=== PATIENT | male | born 2005 | race Caucasian/White ===

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

== ENCOUNTER 2024-06-04 10:19 | Outpatient (AMB) | payer BC, SELFPAY ==
--- NOTE | 2024-06-04 10:52 | MHC.PC.OV ---
Vital Signs 06/04/24 10:53 Height 6 ft Weight 166 lb BMI 22.5 BP 110/72 Blood Pressure Location Lt brachial Position Sitting Pulse 64 Pulse Source Pulse Oximeter Temp 97.5 F Temp Source Temporal Artery Scan Pulse Oximetry (%) 97 Oxygen Delivery Method Room Air Intake Visit Reasons: establish care/deuce [place] Intake Note: Patient is here today for a physical. Monotyper Required: No Accompanied by: Self / Same As Patient Allergies No Known Allergies [No Known Allergies*] Allergy (Verified 06/04/24 11:13) Medication List - Last Reconciled 06/04/24 by Dipak Jordan PA-C No Known Home Meds Tobacco use date assessed: 06/04/24 Dental Screening Dental Screen Date: 06/04/24 Did you have a dental visit in the last 12 months?: Yes Did you have a dental problem in the last 6 months where you did not have access to dental care?: No Was dental information given to patient?: Patient has dentist HPI establish care/deuce Saykin HPI Details Patient has a 18-year-old male here today for a transfer of care visit. Patient does not have any particular past medical history. No concerns today Vaccines: Up-to-date with tetanus vaccines [facility] Medical History Hx of reduction of closed fracture Retained orthopedic hardware Surgical History S/P hardware removal Social History (Updated 06/04/24 @ 11:17 by Dipak Jordan PA-C) Housing: House Are you a primary care advocate to a significant other at home: No Do you presently have visiting nurse or other home services: No Alcohol intake: never Patient Tobacco Use Status: Never used Tobacco e-Cigarette/Vaping Use: Never Used service: No Current occupational status: employed and student ([employer]) Current occupation: fulltime student - [employer] Cognitive needs: No Hearing needs: No Vision needs: No Questionnaire PHQ-9 Over the last 2 weeks, how often have you been bothered by any of the following problems? 1. Little interest or pleasure in doing things: not at all 2. Feeling down, depressed, or hopeless: not at all 3. Trouble falling or staying asleep, or sleeping too much: not at all 4. Feeling tired or having little energy: not at all 5. Poor appetite or overeating: not at all 6. Feeling bad about yourself - or that you are a failure or have let yourself or your family down: not at all 7. Trouble concentrating on things, such as reading the newspaper or watching television: not at all 8. Moving or speaking so slowly that other people could have noticed. Or the opposite - being so fidgety or restless that you have been moving around a lot more than usual: not at all 9. Thoughts that you would be better off or of hurting yourself in some way: not at all Total score: 0 Depression Screening Interpretation: Negative Depression Screening Done: Yes 49218 - PHQ-9 Billing: Yes Source: Developed by Drs. Kimani Burleson, Allie Choe, Joshua Romero and colleagues, with an educational mitchel from [employer]. Thrive Questionnaire Date Thrive assessed: 06/04/24 I am a: Patient What is your living situation today?: I have a steady place to live Within the past 12 months, did the food you bought not last and you didn't have the money to get more?: Never true Within the past 12 months, did you worry whether your food would run out before you got money to buy more?: Never true Do you have trouble paying for medicines?: No Do you have trouble getting transportation to medical appointments?: No Do you have trouble paying your heating and electricity bill?: No Do you have trouble taking care of your child, family member or friend?: No Do you have trouble with day-to-day activities such as bathing, preparing meals, shopping, managing finances, etc.?: No Are you currently unemployed and looking for a job?: No Are you interested in more education?: No Please select the resources that you would like help with: None Currently or been in a relationship where the following occur: No concerns reported THRIVE Score: 0 AUDIT C Alcohol Use Questionnaire (AUDIT-C) 1. How often do you have a drink containing alcohol?: Never 3. How often do you have six or more drinks on one occasion?: Never Total Score: 0 WILMAN-7 AMB Questionnaire WILMAN-7 Date WILMAN - 7 assessed: 06/04/24 Feeling nervous, anxious, or on edge: 0 = Not at all Not being able to stop or control worryin = Not at all Worrying too much about different things: 0 = Not at all Trouble relaxin = Not at all Being so restless that it is hard to sit still: 0 = Not at all Becoming easily annoyed or irritable: 0 = Not at all Feeling afraid as if something awful might happen: 0 = Not at all Total WILMAN-7 score (0-4 normal; 5-9 mild; 10-14 moderate; 15-21 severe): 0 Source: Developed by Drs. Kimani Burleson, Allie Choe, Joshua Romero and colleagues, with an educational mitchel from [employer]. WILMAN-7 Assessment Billing WILMAN-7 Assessment Tool: WILMAN-7 Assessment 04659 Review of Systems Const Denies headache(s) Eyes Denies loss of vision ENT Denies vertigo, Denies dizziness, Denies headache(s) and Denies sore throat Card Denies chest pain, Denies leg edema and Denies lightheadedness Resp Denies cough, Denies hemoptysis and Denies wheezing GI Denies abdominal pain, Denies melena, Denies constipation, Denies diarrhea and Denies vomiting Denies dysuria, Denies urinary frequency and Denies urinary urgency Musc Denies arthralgias, Denies joint swelling, Denies numbness and Denies tingling Neuro Denies Abnormal speech present, Denies behavioral changes, Denies vertigo, Denies dizziness, Denies headache(s), Denies loss of vision, Denies memory loss, Denies numbness and Denies tingling Psych Denies anxiety, Denies behavioral changes, Denies depression, Denies memory loss and Denies panic attacks Berto/Lymph Denies easy bleeding and Denies easy bruising Aller/Immun Denies wheezing Physical exam (Primary Care) Vital Signs: Last Vital Signs Temp 97.5 F 06/04/24 10:53 Pulse 64 06/04/24 10:53 BP 110/72 06/04/24 10:53 Pulse Ox 97 06/04/24 10:53 Oxygen Delivery Method Room Air 06/04/24 10:53 BMI result Body Mass Index 22.5 Tobacco/Smoking Status: Tobacco use Status Tobacco use date assessed 06/04/24 06/04/24 10:57 Patient Tobacco Use Status Never used Tobacco 06/04/24 11:17 e-Cigarette/Vaping Use Never Used 06/04/24 11:17 PHQ-9: PHQ-9 Score PHQ-9: Total score 0 06/04/24 11:14 Depression Screening Interpretation: Negative Thrive Assessment: Date of Thrive Assessment Date Thrive assessed 06/04/24 06/04/24 10:54 Currently or been in a relationship where the following occur: No concerns reported Const General: healthy appearing, no acute distress, alert and awake Nutritional Appearance: well nourished Orientation/consciousness: oriented to person, oriented to place and oriented to time HENMT Ears: TM's normal bilaterally General nose exam: Normal nasal mucous membranes and turbinates present Eyes Conjunctivae: conjunctivae normal Sclerae: sclerae normal Pupils: Equal, round and reactive pupils present Neck Neck: Yes no lymphadenopathy and Yes no JVD Thyroid: Thyroid normal Carotids: no bruits Resp Effort & Inspection: normal respiratory effort and not tachypneic Auscultation: no crackles, no rales, no rhonchi and no wheezes Cardio Rate: regular rate Rhythm: regular rhythm Heart sounds: no murmurs and normal S1 and S2 GI Palpation (GI): Soft to palpation, nontender, no hepatomegaly and no splenomegaly Auscultation: normal bowel sounds Skin General skin exam: no rashes or lesions noted and dry skin Neuro General: oriented to person, oriented to place and oriented to time Cranial nerves: Yes Equal, round and reactive pupils present Speech: No Abnormal speech present Gait exam (Neuro): Normal gait present Motor exam (neuro): no tremor noted Extrem Right upper extremity: full ROM Left upper extremity: full ROM Right lower extremity: full ROM; no edema Left lower extremity: full ROM; no edema Psych Mental Status: mental status grossly normal Speech and movement: Normal speech and movement present Affect: normal affect Attitude: cooperative Thought process: Normal thought process present Coding Level of Care Code Est Pt Level 3 (21746) Diagnoses Encounter to establish care Z76.89 Screening for diabetes mellitus (DM) Z13.1 Additional Codes WILMAN-7 Assessment Billing - WILMAN-7 Assessment Tool: WILMAN-7 Assessment 01032 ([id number]) PHQ-9 - 94593 - PHQ-9 Billing: Yes ([id number]) Assessment & Plan Assessment & Plan (1) Encounter to establish care: Code(s): Z76.89 - Persons encountering health services in other specified circumstances Category: Medical Plan: As per HPI today getting established with an provider. Will send for fasting labs. Will try to set patient up for annual physical this summer. (2) Screening for diabetes mellitus (DM): Code(s): Z13.1 - Encounter for screening for diabetes mellitus Category: Medical Plan: As per HPI Orders: Orders Comprehensive [place]. Panel Fast 06/04/24 Z13.1 - Encounter for screening for diabetes mellitus Complete Blood Count no Diff 06/04/24 Z13.1 - Encounter for screening for diabetes mellitus
[2024-06-04 10:53] VITALS: BP 110/72; PULSE 64; TEMP 36.4; O2SAT 97; BMI 22.5
--- OUTSIDE RECORDS SUMMARY | 2024-06-04 12:08 | XMS_ITS | Clinical Summary ---
Author Organization [facility] Address [address] [place] [address] Phone Care Team Providers Care Wilderness Guide Name Role Phone Unavailable Primary Care Provider Unavailabl e Allergies No known active allergies Medications triamcinolone 0.1 % cream Apply topically. 1 Active triamcinolone 0.1 % creamIndication s:Intrinsic eczema Apply topically 2 (two) times a day. 80 g 3 3 Active Active Problems Problem Noted Date Diagnosed Date COVID-19 virus infection 04/18/2022 Overview (04/18/2022): 02/20: Severe because caused cardiac complication: A fib. Assessment & Plan (04/18/2022 1:47 PM EST): Better now. COVID-19 vaccine series declined 04/18/2022 Assessment & Plan (04/18/2022 2:01 PM EST): I encourage you to have him get the covid vaccine Influenza vaccine refused 04/18/2022 Intrinsic eczema 12/12/2019 Overview (12/12/2019): Recurrent on arms. Has hypopigmentation. Assessment & Plan (04/18/2022 1:59 PM EST): Use triamcinalone and moisturizer Assessment & Plan (12/31/2020 10:55 AM EDT): Triamcinalone twice daily and moisturizer Assessment & Plan (12/12/2019 3:10 PM EDT): Images from the original note were not included. Eczema 1. Cleanse with Dove Sensitive Skin soap. 2. Apply the compounded Triamcinalone/CeraVe cream immediately after shower or bath over entire skin from the neck down. Instructions for compounding: Empty 16 oz. jar of CeraVe cream into plastic container and squeeze entire 80 gm. tube of Triamcinalone cream into same container. Mix together thoroughly. After mixing keep at room temperature in a sealed container. Resolved Problems Problem Noted Date Diagnosed Date Resolved Date Paroxysmal atrial fibrillation 04/18/2022 04/18/2022 Overview (04/18/2022): With Covid Assessment & Plan (04/18/2022 1:46 PM EST): Better now. Malocclusion 12/31/2020 04/18/2022 Overview (12/31/2020): Has braces. Immunizations Immunization Administration Dates Next Due DTaP 5 10/21/2008, 7,02/07/2005,12/06,2004 HPV Vaccine 9 Valent 12/12/2019,06/09/2019 Hep A, ped/adol 07/31/2014,07/08/2013 Hep B, ped/adol 05/15/2005,2004,2004 Hib (HbOC) 08/06/2006 Hib (PRP-T) 02/07/2005,2004,2004 IPV 10/21/2008, 5,2004,10/05 Influenza, injectable, quadr ivalent, preservative free 12/12/2019,12/05/2018,02/01/2018 MMR 10/21/2008,07/31/2005 Meningococcal B Trumenba 04/18/2022 Meningococcal Conj (Menactra) MCV4P 12/31/2020,0 10/08/2015 Pneumococcal Conjugate 08/06/2006,2004,2004,10/05 Tdap 10/08/2015 Varicella 10/21/2008,07/31/2005 Family History Medical History Relation Name Comments No Known Problems Brother Tim No Known Problems Father Giovani COPD Maternal Grandfather Diabetes Maternal Grandmother No Known Problems Mother Khushboo Diabetes Paternal Grandfather No Known Problems Paternal Grandmother Relation Name Status Comments Brother Tim Alive Father Giovani Alive Father: Alive a nd well, Obesity Maternal Grandfather Maternal Grandmother Alive Mother Khushboo Alive Mother: Alive a nd well Other 1 Family history of Diabetes mellitus, Family history of Hypertension Other 2 Family history of Diabetes mellitus, Family history of Hypertension Paternal Grandfather Paternal Grandmother Alive Social History Tobacco Use Types Packs/Day Years Used Date Smoking Tobacco: Never Smokeless Tobacco: Never Tobacco Cessation:Counseling Given: Not Answered Alcohol Use Standard Drinks/Week Comments Never 0 (1 standard drink = 0.6 oz pur e alcohol) Hunger/Food Answer Date Recorded In the last 12 months, did y ou or your family ever eat less than you felt you should because there wasn't enough money for food? No 04/18/2022 Stable Housing Answer Date Recorded Are you worried that in the next 2 months you may not have stable housing? No 04/18/2022 Transportation Concerns Answer Date Rec orded In the last 12 months, have you or your family ever had to go without healthcare because you didn't have a way to get there? No 04/18/2022 Hazards in Home Answer Date Recorded Think about the place you li ve. Do you have problems with any of the following? Pests (mice or roaches), mold, no/not working smoke detectors, water leaks, no window guards. No 2022 Financing Utilities Answer Date Recorde d In the last 12 months, has t he electric, gas, oil, or water [employer] threatened to shut off your services in your home? No 04/18/2022 Safety at Home Answer Date Recorded Are you or your family worried about feeling saf e in your home? No 04/18/2022 Outside Support Answer Date Recorded Do you feel that you need mo re support from other people or programs to help you care for yourself or your family? No 04/18/2022 Understanding Health Concerns Answer Da te Recorded Do you need help understandi ng your or your child's healthcare needs (diagnosis, medications, plan, etc.)? No 04/18/2022 Financing Health Concerns Answer Date R ecorded In the last 12 months, was t here a time when your child needed to see a doctor or get medications or supplies but could not because of cost? No 04/18/2022 Missing School or Work Answer Date Michele rded Did you or your child miss s chool or work because of a health problem that could have been avoided? No 04/18/2022 Sex and Gender Information Value Date Recorded Sex Assigned at Male 12/31/2020 6:33 PM EDT Legal Sex Male 5:00 PM EDT Gender Identity Male 12/31/2020 6:33 PM EDT Sexual Orientation Straight 12/06/2018 3: 15 PM EDT Last Filed Vital Signs Vital Sign Reading Time Taken Comments Blood Pressure 124/70 04/18/2022 1:18 PM EST Pulse 73 04/18/2022 1:18 PM EST Temperature 36.7 ??C (98.1 ??F) 04/18/2022 1:18 PM ES T Respiratory Rate - - Oxygen Saturation - - Inhaled Oxygen Concentration - - Weight 68.5 kg (151 lb) 04/18/2022 1:18 PM EST Height 180.3 cm (5' 11 ) 04/18/2022 1:18 PM EST Body Mass Index 21.06 04/18/2022 1:18 PM EST Body Mass Index Percentile 40.85% 04/18/2022 1:1 8 PM EST Growth Chart: [facility] (Boys, 2-2 0 Years) Plan of Treatment Health Maintenance Due Date Last Done Comments Influenza Vaccines (#1) 2023 12/12/19 20, 12/05/2018, 02/01/2018 COVID-19 Vaccine (1 - 2023-2 5 season) 2023 DTaP,Tdap,and Td Vaccines (7 - Td or Tdap) 10/07/2025 10/08/2015, 10/21/2008, 08/06/2006, Additional history exists Hepatitis B Vaccines Completed 05/15/2005, 2004, 2004 HIB Vaccines Completed 08/06/2006, 10/2004, 2004, Additional history exists Pneumococcal Vaccine Completed 08/06/2006, 02/07/2005, 2004, Additional history exists IPV Vaccines Completed 10/21/2008, 11/0 10/2004, 2004, Additional history exists MMR Vaccines Completed 10/21/2008, 07/31/2005 Varicella Vaccines Completed 10/21/2008, 07/31/2005 Hepatitis A Vaccines Completed 07/31/2014, 07/09/19 14 HPV Vaccines Completed 12/12/2019, 06/09/2019 Meningococcal Vaccine Completed 12/31/2020, 016 Men B Vaccine Completed 11/09/2022, 04/18/2022
--- OUTSIDE RECORDS SUMMARY | 2024-06-04 12:08 | XMS_ITS | Encounter Summary ---
Author Organization [facility] Address [address] [place] [address] Phone Care Team Providers Care Coding Coordinator Name Role Phone Ed Vanegas MD Primary Care Provider [phone] Encounter Details Date Type Department Care Team (Late st Contact Info) Description 09/09/2014 Documentation [facility] [place] Family Medicine [address] [place] [address] Family Medicine, Physician [address] [place], [place] [id number] Social History Tobacco Use Types Packs/Day Years Used Date Smoking Tobacco: Never Assessed Sex and Gender Information Value Date Recorded Sex Assigned at Male 12/31/2020 6:33 PM EDT Legal Sex Male 5:00 PM EDT Gender Identity Male 12/31/2020 6:33 PM EDT Sexual Orientation Straight 12/06/2018 3: 15 PM EDT documented as of this encounter Plan of Treatment Not on file documented as of this encounter Visit Diagnoses Not on filedocumented in this encounter Care Teams Coding Coordinator Relationship Specialty Start Date End Date Ed Vanegas MD [address] [place] [address] [place] [address] PCP - General Pediatrics 09/05/19 11/14/22 documented as of this encounter
--- OUTSIDE RECORDS SUMMARY | 2024-06-04 12:08 | XMS_ITS | Clinical Summary ---
Author Organization [facility] Address [address] [place] [address] Phone Care Team Providers Care Director Of Mechanical Engineering Name Role Phone Physician, Pcp Unknown Primary Care Provider Marlin vailable Allergies No known active allergies Medications No known medications Encounters Date Type Department Care Team Description 04/10/2024 4:00 PM EST Office Visit Orthopedic Surgery [facility] [address] [facility] [address] [place] [address] Elda Shelby MD Closed fracture of distal end of left radius, unspecified fracture morphology, initial encounter (Primary Dx) from Last 3 Months Social History Tobacco Use Types Packs/Day Years Used Date Smoking Tobacco: Never Assessed Sex and Gender Information Value Date Recorded Sex Assigned at Not on file Legal Sex Male 8:42 AM EST Gender Identity Not on file Sexual Orientation Not on file Growth Chart Information Age Height Weight [id number] th Percentile BMI Percentile Head Circum Head Circum Percentile Date 18 years 185.4 cm (6' 0.99 ) 2024 18 years 185.4 cm (6' 0.99 ) 73.5 kg (162 lb) 30.40%* 2023 18 years 185.4 cm (6' 1 ) 73.5 kg (162 lb) 30.46%* 2023 * CDC (Boys, 2-20 Years) Last Filed Vital Signs Vital Sign Reading Time Taken Comments Blood Pressure - - Pulse - - Temperature - - Respiratory Rate - - Oxygen Saturation - - Inhaled Oxygen Concentration - - Weight 73.5 kg (162 lb) 02/25/2024 3:53 PM EST Height 185.4 cm (6' 0.99 ) 04/10/2024 4:02 PM ES T Body Mass Index 21.38 02/25/2024 3:53 PM EST Plan of Treatment Health Maintenance Due Date Last Done Comments Hepatitis B Vaccines (2 of 3 - 3-dose series) 2004 2004 Varicella Vaccines (1 of 2 - 13+ 2-dose series) 2017 HPV Vaccines (1 - Male 3-dos e series) 07/26/2019 Meningococcal B Vacine (1 of 2 - Standard) 2020 DTaP,Tdap,and Td Vaccines (1 - Tdap) 07/26/2023 COVID-19 Vaccine (1 - 2023-2 5 season) 2023 Influenza Vaccine (#1) 2023 Annual Well Child Visit (3-2 1 years old) 02/13/2024 Depression Screening 02/13/2024 HIV Screening 02/13/2024 Hepatitis C Screening 02/13/2024 Social Influencers of Health Screening 02/13/2024 HIB Vaccines Aged Out No longer eligi ble based on patient's age to complete this topic Hepatitis A Vaccines Aged Out No long er eligible based on patient's age to complete this topic IPV Vaccines Aged Out No longer eligi ble based on patient's age to complete this topic MMR Vaccines Aged Out No longer eligi ble based on patient's age to complete this topic Meningococcal ACWY Vaccine Aged Out N o longer eligible based on patient's age to complete this topic Pneumococcal Vaccine: Pediat rics (0 to 5 Years) and At-Risk Patients (6 to 64 Years) Aged Out No longer eligi ble based on patient's age to complete this topic RSV Immunization Patients Un sherine 20 months Aged Out No longer eligible b ased on patient's age to complete this topic Procedures Procedure Name Priority Date/Time Associated Diagnosis Comments XR WRIST 3+ VIEWS LEFT Routine 04/10/2024 4:28 PM EST Closed fracture of distal end of left radius, unspecified fracture morphology, initial encounter from Last 3 Months Results * XR Wrist 3+ Views Left (04/10/2024 4:28 PM EST) Anatomical Region Laterality Modality Upper Extremities, Wrist Left Compute d Radiography 04/10/2024 4:30 PM EST Impressions 04/10/2024 4:37 PM EST Interval healing of the distal radius fracture. POS - [id number] -------- FINAL REPORT -------- Dictated By: Alysa Alfredo Dictated Date: 04/10/2024 16:30 ET Assigned Physician: Alysa Alfredo Reviewed and Electronically Signed By: Alysa Alfredo Signed Date: 04/10/2024 16:37 ET Workstation ID: [id number] Transcribed By: Self Edit Transcribed Date: 04/10/2024 16:30 ET Narrative 04/10/2024 4:37 PM EST EXAM: Left wrist x-ray HISTORY: Follow-up left distal radius fracture. COMPARISON: 02/25/2024 FINDINGS: 3 views were performed. Mild sclerosis now present at the fracture site involving the distal radial metaphysis from healing. ??Fracture remains nondisplaced and nonangulated. ??No new fracture or malalignment. ??Joint spaces are maintained. Procedure Note Alysa Alfredo MD - 04/10/2024 EXAM: Left wrist x-ray HISTORY: Follow-up left distal radius fracture. COMPARISON: 02/25/2024 FINDINGS: 3 views were performed. Mild sclerosis now present at the fracture site involving the distalradial metaphysis from healing. Fracture remains nondisplaced andnonangulated. No new fracture or malalignment. Joint spaces aremaintained. IMPRESSION: Interval healing of the distal radius fracture. POS - [id number] -------- FINAL REPORT -------- Dictated By: Alysa Alfredo Dictated Date: 04/10/2024 16:30 ET Assigned Physician: Alysa Alfredo Reviewed and Electronically Signed By: Alysa Alfredo Signed Date: 04/10/2024 16:37 ET Workstation ID: [id number] Transcribed By: Self Edit Transcribed Date: 04/10/2024 16:30 ET us Elda Shelby MD IMG XR PROCEDURES Final Result from Last 3 Months Insurance [facility] Care Teams Director Of Mechanical Engineering Relationship Specialty Start Date End Date Physician, Pcp Unknown PCP - General 02/13/24
--- OUTSIDE RECORDS SUMMARY | 2024-06-04 12:08 | XMS_ITS | Encounter Summary ---
Author Organization [facility] Address [address] [place] [address] Phone Care Team Providers Care Senior Game Designer Name Role Phone Ed Vanegas MD Primary Care Provider [phone] Encounter Details Date Type Department Care Team (Late st Contact Info) Description 11/16/2016 Conversion Encounter [facility] [place] [address] [place] [address] Social History Tobacco Use Types Packs/Day Years [...] on filedocumented in this encounter Care Teams Senior Game Designer Relationship Specialty Start Date End Date Ed Vanegas MD [address] [place] [address] PCP - General Pediatrics 09/05/19 11/14/22 documented as of this encounter
--- OUTSIDE RECORDS SUMMARY | 2024-06-04 12:08 | XMS_ITS | Encounter Summary ---
Author Organization [facility] Address [address] [place] [address] Phone Care Team Providers Care Insulation Cutter Name Role Phone Ed Vanegas MD Primary Care Provider [phone] Encounter Details Date Type Department Care Team (Late st Contact Info) Description 09/10/2014 Documentation [facility] [place] [address] [place] [address] Family Medicine, Physician [address] [place], [place] [phone] Social History Tobacco Use Types Packs/Day Years [...] on filedocumented in this encounter Care Teams Insulation Cutter Relationship Specialty Start Date End Date Ed Vanegas MD [address] [place] [address] [place] [address] PCP - General Pediatrics 09/05/19 11/14/22 documented as of this encounter
--- OUTSIDE RECORDS SUMMARY | 2024-06-04 12:08 | XMS_ITS | Data Portability ---
Author Organization SHIREEN [facility] jaylen [address] Address [address] [place] [address] Assessment No assessment recorded. Plan of Treatment Reminders Order Date Submit Date Provider Last Modified By Organization Details Last Modified Time Details Appointments None record ed. Lab None record ed. Referral None record ed. Procedures None record ed. Surgeries None record ed. Imaging None record ed. Medication Orders None record ed. Patient TargetsNo targets recorded. Patient Instructions Encounter Date Encounter Id Patient Instructions Last Modified By Organization Details Last Modified Time 10/20/2022 [id number] Patient is cleared physically to participate in school/sports activities without restrictions. Return to [employer] as needed. [email or web address] Not available 10/20/2022 16:15:26 Reason for Referral None Reported. Problems No Known Problems Medical Equipment None Reported. Allergies No known drug allergies Medications Name Sig Start Date Stop Date Status Note LastModified by Organization Details LastModified Time triamcinolo ne acetonide 0.1 % topical cream APPLY TO AFFECTED AREA TWICE A DAY 10/17 completed Not Available Not Available Not Available Vitals Date Recorded Body height Body mass index (BMI) Body mass index (BMI) Percentile per age and sex Body weight Oxygen saturation Oxygen saturation in Arterial blood by Pulse oximetry Heart rate Respiratory rate Body temperature Systolic blood pressure Diastolic blood pressure Provider Name and Address Organization Details Last Updated DateTime 4 182.88 cm 21.7 kg/m2 37 % 86100.7 8 g 99 % 99 % 79 /min 17 /min 98.1 [degF] 107 mm[Hg] 75 mm[Hg] Marcela Arroyo [facility] 4 13:19:52 Social History Question Answer Notes LastModified by Organizat ion Details LastModified Time Tobacco Smoking Status Never Smoker SHIREEN Flynn [facility] 10/18/2023 13:18:12 What Is Your Level Of Alcohol Consumption? None Information not available 10/18/2023 Have You Had A Flu Shot This Season? Yes Information not available 10/18/2023 Do You Use Any Illicit Or Recreational Drugs? No Information not available 10/18/2023 Have You Recently Traveled Abroad? No Information not available 10/18/2023 Do You Or Have You Ever Used Any Other Forms Of Tobacco Or Nicotine? No Information not available 10/18/2023 Sex: Unknown Functional Status None recorded. Mental Status None recorded. Family History Relationship Description Onset Age of this Age Resolved Age Notes LastModified by Organization Details LastModified Time Father No current problems or disability Not available 13:18:00 Mother No current problems or disability Not available 13:18:00 Medical History No medical history recorded. Past Encounters Encounter ID Performer Location Encounter Start Date Encounter Closed Date Diagnosis/Indication Diagnosis SNOMED-CT Code Diagnosis ICD10 Code Diagnosis Note [id number] [address] [place] [address] 12/30/2015 15:30:02 12/30/2015 19:49:36 [id number] [address] [place] [address] 02/16/2022 08:09:33 02/16/2022 08:56:23 [id number] [address] [place] [address] 09/13/2020 18:31:22 09/13/2020 19:18:56 [id number] [address] [place] [address] 12/12/2020 14:05:35 12/12/2020 16:02:46 [id number] Kb Pineda [place] [address] [place] [address] 10/20/2022 12:56:17 10/20/2022 16:17:52 History and physical examination, sports participation 087328809 Z02.5 [id number] SHIREEN Enrique [address] [facility] [place] [address] 10/18/2023 13:06:15 10/18/2023 13:32:56 History and physical examination, sports participation 520339559 Z02.5 Patient is cleared physically to participat e in school/spo rts activities without restrictio ns.See scanned paperwork for details. Thank you for using [facility] today, please feel free to contact our office if you have any questions or concerns. Health Concerns Section Related Observation LastModified by Organization Detai ls LastModified Time None Recorded Concern Status LastModified by Organization Details LastModified Time None Recorded Advance Directives Directive None Recorded Payers Encounter Date Sequence Insurance Name Policy Number Policy Arevalo Covered Member ID Arevalo Member ID Guarantor Name 09/13/2020 1 [facility] [id number] Ed Espinoza Jr [id number] Philippe Sutton 12/12/2020 1 [facility] [id number] Ed Espinoza Jr [id number] Philippe Sutton 10/20/2022 FEE FOR SERVICE Philippe Sutton Notes Date Note Type Note Provider Name a az Address Organization Details Recorded Time 10/20/2022 text/html physical Kb Pineda NP [address] [place], [address], SHIREEN - [facility] 10/20/2022 16:16:18
== END 2024-06-04 11:25 | disposition home or self-care (01) ==
PROVIDERS: PCP Physician Assistant; Visit Provider Physician Assistant
DX: Z76.89 Persons encountering health services in other specified circumstances (principal); Z13.1 Encounter for screening for diabetes mellitus

== ENCOUNTER → 2024-06-04 10:19 | Outpatient (BNVA) | payer BC, SELFPAY | PROVIDERS: PCP Physician Assistant; Visit Provider Physician Assistant | DX: Z76.89 Persons encountering health services in other specified circumstances (principal) | CPT/HCPCS: 96127 ==